=== PATIENT | female | born 1960 ===

== ENCOUNTER 2018-02-20 08:09 | Day surgery (SDC) | payer OTHER ==
[~2018-02-20 08:09] MED LIST: Buffered Lidocaine 0.9% SYRIN* 5 ML/SYR SYRINGE INTRADERM ONE; Bupivacaine 0.25% SDV PF* 10 ML VIAL INJ ONE; Lactated Ringers 1000 ML Bag* 1,000 ML IV SCH
[2018-02-20] MEDS ORDERED: Naloxone* 0.4 MG/ML 1 ML VIAL IV PRN (08:19)
[2018-02-20] MEDS ORDERED: Midazolam* 1 MG/ML 2 ML VIAL (2 MG) ONE (09:18)
[2018-02-20] MEDS ORDERED: fentaNYL* 50 MCG/ML 2 ML VIAL (100 MCG VIAL) ONE (09:18)
[2018-02-20] MEDS ORDERED: Lidocaine 2% PF * 5 ML VIAL ONE (09:30)
[2018-02-20] MEDS ORDERED: Propofol* 10 MG/ML 20 ML BTL ONE (09:30)
[2018-02-20 09:59] VITALS: BP 122/75
--- NOTE | 2018-02-20 17:30 | OP ---
DATE OF OPERATION: 02/20/18 [facility] DATE OF : 56 SURGEON: Alverto Croft MD DELIVERY TRUCK DRIVER: OFELIA Harrell ANESTHESIOLOGIST: Dr. Carrillo. ANESTHESIA: Local MAC. PRE-OP DIAGNOSIS: Left chronic middle trigger finger. POST-OP DIAGNOSIS: Left chronic middle trigger finger. OPERATIVE PROCEDURE: Left middle trigger finger release. INDICATIONS: Jennifer is 57. She has the trigger finger. We talked about risks and benefits. She wanted to proceed with surgery. FINDINGS: See above and below. ESTIMATED BLOOD LOSS: 1 mL. COMPLICATIONS: None. DESCRIPTION OF PROCEDURE: Jennifer was seen in the preoperative holding area. The correct side, site, and procedure were identified. We came back to the operating room. The operative site was infiltrated with 0.25% plain Marcaine after a time- out. The arm was then prepped and draped and a time-out was performed. I made a 1-cm oblique incision using the distal palmar crease over the middle finger. Dissection was carried down. The A1 eric was exposed raising full-thickness flaps off the tendon sheath bluntly. I then released the A1 eric longitudinally along the radial third with a 15-blade. The release was completed distally and proximally with the tenotomy scissors. Once everything was completely released, I performed a little tenosynovectomy around the tendons. The adhesions between the FDS and FDP tendons were released. Once everything was looking good, we irrigated out the wound. Skin was closed with 4-0 nylon suture. Soft dressings were applied and she was taken to the recovery room in stable condition. [id number]/[facility] #: [id number] [facility]
== END 2018-02-20 10:10 | disposition home or self-care (01) ==
LOC: OREAST 08:09
PROVIDERS: ATTEND Orthopaedic Surgery Hand Surgery
DX: M65.332 Trigger finger, left middle finger (principal); E11.9 Type 2 diabetes mellitus without complications; Z79.84 Long term (current) use of oral hypoglycemic drugs; E78.5 Hyperlipidemia, unspecified
CPT/HCPCS: J2250; J2704; J3010; J3490